=== PATIENT | male | born 1965 | race Two or more races ===

== ENCOUNTER 2016-11-20 22:40 | Emergency (ER) | payer BC, OTHER ==
[~2016-11-20] VITALS: Ht 175.3 cm; Wt 74.8 kg
[2016-11-20] MEDS ORDERED: PROPECIA1 MG PO (22:55)
[2016-11-20] MEDS ORDERED: SIMVASTATIN10 MG ORAL (22:55)
[2016-11-20 23:00] VITALS: BP 120/84
--- NOTE | 2016-11-20 23:10 | Emergency Room Report ---
History of Present Illness General Chief Complaint: Male Urogenital Problems Source: Patient Present Illness HPI The patient presented for increased difficulty with urination. Patient noted have increased hesitancy with urination. The patient was noted to have a similar type symptoms in the past. Patient denies prior history of prostatic disease. He denies any rectal fullness. He denies any dysuria. He denies any recent fevers. He denies any antihistamine or other medication use. Allergies: Coded Allergies: No Known Allergies (Unverified , 11/20/16) Patient History Reviewed Nursing Documentation: PMH: Agreed, PSxH: Agreed Nursing Documentation-PMH Hx Cardiac Problems: Yes - HIGH CHOLESTEROL Review of Systems All Other Systems: negative except mentioned in HPI Physical Exam Vital Signs Date Time Temp Pulse Resp B/P Pulse Ox O2 Delivery O2 Flow Rate FiO2 11/20/16 22:48 98.1 59 16 125/86 96 Room Air General Appearance: well appearing, no apparent distress, alert, GCS 15 Head: normocephalic, atraumatic ENT: hearing grossly normal, normal voice Neck: full range of motion, supple Respiratory: no respiratory distress, speaking full sentences Cardiovascular #1: normal inspection, regular rate, rhythm Gastrointestinal: normal inspection, soft Musculoskeletal: normal inspection, back normal, no calf tenderness Neurologic: normal inspection, alert, oriented x3, responsive, normal gait Psychiatric: mood/affect normal Skin: no rash Medical Decision Making Diagnostic Impression: Primary Impression: Urinary hesitancy ER Course Patient presented for dysuria. Differential diagnosis included was not limited to appendicitis, urinary tract infection, prostatitis, urethritis, herpes among others. Urinary retention. The patient was able to void in the emergency department. Patient was given prescription for a prostate medications . I advised followup with primary care physician for further evaluation workup. A urinalysis showed no evidence of a urinary infection. Patient was given prescription for Flomax. Labs Test 11/20/16 23:00 Urine Color Pale yellow Urine Appearance Clear Urine pH 5 (4.5-8.0) Urine Specific [place] 1.025 (1.005-1.035) Urine Protein Negative (NEGATIVE) Urine Glucose (UA) Negative (NEGATIVE) Urine Ketones Negative (NEGATIVE) Urine Occult Blood 1+ (NEGATIVE) Urine Nitrite Negative (NEGATIVE) Urine Bilirubin Negative (NEGATIVE) Urine Urobilinogen Normal MG/DL (0.0-1.0) Urine Leukocyte Esterase Negative (NEGATIVE) Urine RBC 2-4 /HPF (0 - 0) Urine WBC 0-2 /HPF (0 - 0) Urine Squamous Epithelial Cells Occasional /LPF Urine Bacteria Occasional /HPF (NONE) Urine Mucus Occasional /LPF Last Vital Signs Date Time Temp Pulse Resp B/P Pulse Ox O2 Delivery O2 Flow Rate FiO2 11/20/16 22:48 98.1 59 16 125/86 96 Room Air Status: improved Disposition: HOME, SELF-CARE Condition: Stable Scripts Tamsulosin Hcl (TAMSULOSIN HCL*) 0.4 Mg Cap.er.24h 0.4 MG ORAL BEDTIME, #14 CAP Prov: Richmond Delarosa 11/20/16 Richmond Delarosa Nov 20, 2016 23:10
[2016-11-20 23:31] LABS: APPEARANCE,URINE CLEAR; KETONES,URINE NEGATIVE (NEGATIVE); LEUKOCYTE ESTERASE ,URINE NEGATIVE (NEGATIVE); NITRITE,URINE NEGATIVE (NEGATIVE); PH,URINE 5 (4.5-8.0); PROTEIN,URINE NEGATIVE (NEGATIVE); UROBILINOGEN,URINE NORMAL MG/DL (0.0-1.0)
[2016-11-20] MEDS ORDERED: TAMSULOSIN HCL0.4 MG ORAL (23:52)
[2016-11-20 23:56] LABS: BACTERIA,URINE OCCASIONAL /HPF; MUCUS,URINE OCCASIONAL /LPF (NONE/OCC); SQUAMOUS EPITHELIAL CELL,UR OCCASIONAL /LPF (NONE/OCC); WBC,URINE 0-2 /HPF (0 - 0)
[2016-11-20] MEDS ORDERED: Tamsulosin 0.4mg cap ONE (23:59)
[2016-11-21 00:15] VITALS: BP 120/74
[2016-11-21] MEDS ORDERED: Tamsulosin 0.4mg cap ORAL SCH (21:00)
== END 2016-11-21 00:15 | disposition home or self-care (01) ==
LOC: EMR 23:06
DX: R39.11 Hesitancy of micturition (principal)
CPT/HCPCS: 81003; 99283